=== PATIENT | male | born 1965 | race Caucasian/White ===

== ENCOUNTER → 2021-12-27 10:35 | Outpatient (BNVA) | payer OTHER, SELFPAY | PROVIDERS: PCP Family Medicine; Referring Provider Family Medicine; Visit Provider Specialist | DX: M25.561 Pain in right knee (principal) | CPT/HCPCS: 73560; 73565 ==

== ENCOUNTER 2024-07-16 08:51 | Outpatient (CLI) | payer OTHER, SELFPAY ==
--- NOTE | 2024-07-16 08:59 | FL_ITS ---
WS: [id number] Exam: FL barium swallow [id number] Date/Time of Exam: 07/16/2024 9:14 AM Reason For Exam: DIFFICULTY SWALLOWING/CHOKING/COUGHING AT TIMES Fluoroscopy time: 3min [id number] minutes # of spot films: 4 Oral pharyngeal phase of swallowing was normal. No sign of esophageal stricture or mass. Normal esoph ageal motility. The esophagus was not displaced. No hiatal hernia or gastroesophageal reflux. FL/FL barium swallow [id number] IMPRESSION: 1. Unremarkable esophagram.
== END 2024-07-16 08:52 | disposition home or self-care (01) ==
LOC: RAD 08:54
PROVIDERS: PCP Family Medicine; Visit Provider Family Medicine
DX: Z01.89 Encounter for other specified special examinations (principal)
CPT/HCPCS: 74220